=== PATIENT | male | born 1940 | race Caucasian/White ===

== ENCOUNTER 2016-08-24 17:24 | Emergency (ER) | payer OTHER, MEDICARE, BC ==
[2016-08-24 17:47] VITALS: TEMP 97.4
[2016-08-24 17:57] VITALS: RESP 18
[2016-08-24 18:10] VITALS: BP 158/79; PULSE 69; O2SAT 95
== END 2016-08-24 19:16 | disposition home or self-care (01) | DRG 552 ==
LOC: ED 17:24
DX: S16.1XXA Strain of muscle, fascia and tendon at neck level, initial encounter (principal); V43.53XA Car driver injured in collision with pick-up truck in traffic accident, initial encounter
CPT/HCPCS: 72125; 99282; 99283; G0390

== ENCOUNTER 2016-09-26 10:20 | Emergency (ER) | payer OTHER, MEDICARE, BC ==
[2016-09-26 11:12] VITALS: BP 136/75; PULSE 77; RESP 20; TEMP 98; O2SAT 94
== END 2016-09-26 13:05 | disposition home or self-care (01) | DRG 605 ==
LOC: ED 10:20
DX: S00.03XA Contusion of scalp, initial encounter (principal); Z87.820 Personal history of traumatic brain injury; W01.0XXA Fall on same level from slipping, tripping and stumbling without subsequent striking against object, initial encounter
CPT/HCPCS: 70450; 99282

== ENCOUNTER 2016-09-28 15:06 | Outpatient (CLI) | payer MEDICARE, BC ==
[2016-09-26 11:12] VITALS: O2SAT 94
== END 2016-09-28 15:07 | disposition home or self-care (01) | DRG 554 ==
LOC: CONVCARE 15:06
PROVIDERS: ATTEND Orthopaedic Surgery
DX: M17.11 Unilateral primary osteoarthritis, right knee (principal)
CPT/HCPCS: 73560